=== PATIENT | male | born 1985 | race American Indian/Alaskan Native ===

== ENCOUNTER 2017-09-01 06:10 | Emergency (ER) | payer SELFPAY ==
[2017-09-01 06:53] VITALS: BP 126/92
--- NOTE | 2017-09-01 07:48 | Emergency Department Report ---
ED ENT HPI - General Chief complaint: Sore Throat Stated complaint: MOUTH PAIN Time Seen by Provider: 09/01/17 07:43 Source: patient Mode of arrival: Ambulatory Limitations: No Limitations - History of Present Illness Initial comments: 32-year-old male past medical history none presents with complaint of 2-3 days of sore throat. Patient is awake alert and oriented 3 acute distress. States swallowing solids is painful. Denies fevers or chills. Does state that he has some tender glands in the front of his throat. Denies cough. Speaking in full sentences. No trismus or drooling noted. States he can still swallow liquids without difficulty. MD complaint: sore throat Onset/Timin -: days(s) Location: throat Severity: moderate Quality: aching Consistency: constant Worsens with: swallowing Associated Symptoms: sore throat - Related Data Previous Rx's Medication Instructions Recorded Last Taken Type Amoxicillin/Potassium Clav 1 each PO BID #20 tablet 09/01/17 Unknown Rx [Augmentin 875-125 Tablet] Chlorhexidine Mouthwash [Peridex] 15 ml MM BID #1 bottle 09/01/17 Unknown Rx Dextromethorphan/Benzocaine 1 each PO Q4H PRN #1 box 09/01/17 Unknown Rx [Cepacol Sorethroat-Cough Linda] Ibuprofen [Motrin] 800 mg PO Q8HR PRN #25 tablet 09/01/17 Unknown Rx Allergies Allergy/AdvReac Type Severity Reaction Status Date / Time No Known Allergies Allergy Unverified 09/01/17 06:42 ED Dental HPI - General Chief complaint: Sore Throat Stated complaint: MOUTH PAIN Time Seen by Provider: 09/01/17 07:43 Source: patient Mode of arrival: Ambulatory Limitations: No Limitations - Related Data Previous Rx's Medication Instructions Recorded Last Taken Type Amoxicillin/Potassium Clav 1 each PO BID #20 tablet 09/01/17 Unknown Rx [Augmentin 875-125 Tablet] Chlorhexidine Mouthwash [Peridex] 15 ml MM BID #1 bottle 09/01/17 Unknown Rx Dextromethorphan/Benzocaine 1 each PO Q4H PRN #1 box 09/01/17 Unknown Rx [Cepacol Sorethroat-Cough Linda] Ibuprofen [Motrin] 800 mg PO Q8HR PRN #25 tablet 09/01/17 Unknown Rx Allergies Allergy/AdvReac Type Severity Reaction Status Date / Time No Known Allergies Allergy Unverified 09/01/17 06:42 ED Review of Systems ROS: Stated complaint: MOUTH PAIN Other details as noted in HPI Constitutional: denies: chills, fever Eyes: denies: eye pain, eye discharge, vision change ENT: throat pain, other (patient has several dental cavities). denies: ear pain Respiratory: denies: cough, shortness of breath, wheezing Cardiovascular: denies: chest pain, palpitations Endocrine: no symptoms reported Gastrointestinal: denies: abdominal pain, nausea, diarrhea Genitourinary: denies: urgency, dysuria Musculoskeletal: denies: back pain, joint swelling, arthralgia Skin: denies: rash, lesions Neurological: denies: headache, weakness, paresthesias Psychiatric: denies: anxiety, depression Hematological/Lymphatic: denies: easy bleeding, easy bruising ED Past Medical Hx - Past Medical History Previous Medical History?: No - Surgical History Past Surgical History?: No - Social History Smoking Status: Current Every Day Smoker Substance Use Type: None - Medications Home Medications: Home Medications Medication Instructions Recorded Confirmed Last Taken Type Amoxicillin/Potassium Clav 1 each PO BID #20 tablet 09/01/17 Unknown Rx [Augmentin 875-125 Tablet] Chlorhexidine Mouthwash [Peridex] 15 ml MM BID #1 bottle 09/01/17 Unknown Rx Dextromethorphan/Benzocaine 1 each PO Q4H PRN #1 box 09/01/17 Unknown Rx [Cepacol Sorethroat-Cough Linda] Ibuprofen [Motrin] 800 mg PO Q8HR PRN #25 tablet 09/01/17 Unknown Rx ED Physical Exam - General Limitations: No Limitations General appearance: alert, in no apparent distress - Head Head exam: Present: atraumatic, normocephalic - Eye Eye exam: Present: normal appearance, PERRL, EOMI - ENT ENT exam: Present: mucous membranes moist - Expanded ENT Exam Expanded Teeth exam: Present: dental caries (patient has multiple dental cavities) Throat exam: Positive: tonsillar erythema (patient has tonsillar erythema. 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 Absent: respiratory distress - Cardiovascular Cardiovascular Exam: Present: regular rate, normal rhythm. Absent: systolic murmur, diastolic murmur, rubs, gallop - GI/Abdominal GI/Abdominal exam: Present: soft, normal bowel sounds - Rectal Rectal exam: Present: deferred - Extremities Exam Extremities exam: Present: normal inspection - Back Exam Back exam: Present: normal inspection - Neurological Exam Neurological exam: Present: alert, oriented X3 - Psychiatric Psychiatric exam: Present: normal affect, normal mood - Skin Skin exam: Present: warm, dry, intact, normal color. Absent: rash ED Course Vital Signs 09/01/17 06:47 Temperature 98.9 F Pulse Rate 74 Respiratory 18 Rate Blood Pressure 126/92 O2 Sat by Pulse 98 Oximetry ED Medical Decision Making - Medical Decision Making A/P: Strep throat 1-strep swab positive, empiric treatment with Augmentin 2-Peridex mouthwash, Motrin, throat lozenges 3-follow-up with primary care 4-advised patient to return to the ED if he experiences any worsening symptoms or difficulty swallowing liquids or shortness of breath. Patient stated he understood my instructions. 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 ED Disposition Clinical Impression: Tonsillitis, Strep throat Disposition: TO HOME OR SELFCARE Is pt being admited?: No Does the pt Need Aspirin: No Condition: Stable Instructions: Strep Throat (ED), Tonsillitis (ED) Prescriptions: Amoxicillin/Potassium Clav [Augmentin 875-125 Tablet] 1 each PO BID #20 tablet Chlorhexidine Mouthwash [Peridex] 15 ml MM BID #1 bottle Dextromethorphan/Benzocaine [Cepacol Sorethroat-Cough Linda] 1 each PO Q4H PRN #1 box PRN Reason: Sore Throat Ibuprofen [Motrin] 800 mg PO Q8HR PRN #25 tablet PRN Reason: Sore Throat Referrals: [facility] [Outside] - 3-5 Days [facility] [Outside] - 3-5 Days [facility] [Outside] - 3-5 Days Forms: Work/School Release Form(ED) Time of Disposition: 08:01
== END 2017-09-01 08:12 | disposition home or self-care (01) ==
LOC: ED 06:10
DX: J02.0 Streptococcal pharyngitis (principal); F17.200 Nicotine dependence, unspecified, uncomplicated
CPT/HCPCS: 87430; 99283